=== PATIENT | female | born 1965 | race Caucasian/White ===

== ENCOUNTER 2021-12-04 09:23 | Emergency (ER) | payer MEDICAID ==
[~2021-12-04] VITALS: Ht 172.7 cm; Wt 63.6 kg
[2021-12-04 09:32] VITALS: BP 143/89
[2021-12-04] MEDS ORDERED: LIDOcaine 1% 30ml preserv. free vial IJ ONE (10:55)
[2021-12-04] MEDS ORDERED: HYDROcodone/acetaminophen 10/325mg tab PO ONE (12:20)
== END 2021-12-04 12:51 | disposition home or self-care (01) ==
LOC: ER 09:24
DX: S52.592A Other fractures of lower end of left radius, initial encounter for closed fracture (principal); W19.XXXA Unspecified fall, initial encounter; Y93.89 Activity, other specified; Y92.89 Other specified places as the place of occurrence of the external cause; Y99.8 Other external cause status
CPT/HCPCS: 25605; 73100; 73110; 73130; 99284; A4565